=== PATIENT | male | born 1975 | race Hispanic/Latino ===

== ENCOUNTER 2023-08-22 06:53 | Day surgery (SDC) | payer BC ==
[2023-08-20 14:06] LABS: BASOPHILS # (AUTO) 0.05 K/uL (0.00-0.20); BASOPHILS % (AUTO) 0.7 % (0.0-5.0); EOSINOPHILS # (AUTO) 0.17 K/uL (0.00-0.70); EOSINOPHILS % (AUTO) 2.2 % (0.0-8.0); HEMATOCRIT 48.9 % (42-54); IMMATURE GRANULOCYTE ABSOLUTE 0.01 K/uL (0-1); LYMPHOCYTES # (AUTO) 2.5 K/uL (1.0-4.8); LYMPHOCYTES % (AUTO) 32.3 % (21.0-51.0); MEAN CORPUSCULAR HEMOGLOBIN 30.1 pg (27.0-33.0); MEAN CORPUSCULAR HGB CONC 32.3 g/dL (32.0-36.0); MEAN CORPUSCULAR VOLUME 93.1 fL (79-99); MONOCYTES # (AUTO) 0.8 K/uL (0.1-1.0); MONOCYTES % (AUTO) 9.9 % (3.0-13.0); NEUTROPHILS # (AUTO) 4.2 K/uL (1.8-7.7); NEUTROPHILS % (AUTO) 54.8 % (40.0-77.0); PLATELET COUNT (AUTO) 217 K/uL (130-400); RED BLOOD CELL COUNT(AUTO) 5.25 MIL/uL (4.50-6.20); RED CELL DISTRIBUTION WIDTH 13.5 % (11.0-15.5); WHITE BLOOD COUNT (AUTO) 7.7 K/uL (4.8-10.8)
[2023-08-20 14:14] LABS: CREATININE 0.7 mg/dL (0.5-1.5)
[2023-08-20 14:24] VITALS: BP 135/83; PULSE 71; RESP 15
[2023-08-22] VITALS (17 sets, daily range): BP systolic 107–127; BP diastolic 58–79; PULSE 72–97; RESP 12–16
[~2023-08-22] VITALS: Ht 175.3 cm; Wt 118.9 kg
[~2023-08-22 06:53] MED LIST: LOSA50TA64 PO; METF-444 PO
[2023-08-22] MEDS ORDERED: BUPIVACAINE/PF 0.5% 10ML VIAL ONE (07:08)
[2023-08-22] MEDS ORDERED: INSULIN HUMULIN R 100 UNIT/ML 3ML ONE (07:11)
[2023-08-22] MEDS ORDERED: 0.9%NACL 1000ML 1,000 ML IV ONE (07:32)
[2023-08-22] MEDS ORDERED: CEFAZOLIN SODIUM 1 GM VIAL ONE (07:32)
[2023-08-22] MEDS ORDERED: DEXAMETHASONE SOD PHOSPHATE 4 MG/ML 1ML VIAL ONE (07:52)
[2023-08-22] MEDS ORDERED: KETOROLAC 30MG VIAL (30MG/ML) ONE ×2 (07:52→11:45)
[2023-08-22] MEDS ORDERED: LIDOCAINE PF 100MG/5ML (2%) SYRINGE 5ML ONE (07:52)
[2023-08-22] MEDS ORDERED: ONDANSETRON 4MG INJ ONE ×2 (07:52→14:16)
[2023-08-22] MEDS ORDERED: PROPOFOL 10 MG/ML 20ML VIAL IV ONE (07:53)
[2023-08-22] MEDS ORDERED: FENTANYL CITRATE PF 50 MCG/1 ML 5ML AMP IV ONE (07:53)
[2023-08-22] MEDS ORDERED: ROCURONIUM 10MG/1ML SYR 10 MG/ML ML ONE ×2 (07:53→11:07)
[2023-08-22] MEDS ORDERED: MIDAZOLAM HCL 1 MG/ML 2ML VIAL ONE (07:53)
[2023-08-22] MEDS ORDERED: ROPIVACAINE 0.5% 5MG/ML 30ML IJ ONE ×2 (07:54→14:00)
[2023-08-22] MEDS ORDERED: LIDOCAINE HCL 1% MDV 50ML VIAL ONE (08:33)
[2023-08-22] MEDS ORDERED: BUPIVACAINE/PF 0.25% 30ML VIAL IJ ONE (08:34)
[2023-08-22] MEDS ORDERED: PHENYLEPHRINE HCL 10 MG/ML 1ML VIAL IV ONE (10:19)
[2023-08-22] MEDS ORDERED: GLYCOPYRROLATE 1 MG/5 ML SYRINGE ONE (11:42)
[2023-08-22] MEDS ORDERED: NEOSTIGMINE 5MG/5ML SYR IV ONE (11:42)
[2023-08-22] MEDS ORDERED: KETOROLAC 15MG/ML VIAL (15MG/ML) ONE (12:39)
== END 2023-08-22 14:45 | disposition home or self-care (01) ==
LOC: DAH 06:53
PROVIDERS: ATTEND Student in an Organized Health Care Education/Training Program
DX: K42.9 Umbilical hernia without obstruction or gangrene (principal); I10 Essential (primary) hypertension; E11.9 Type 2 diabetes mellitus without complications; Z79.01 Long term (current) use of anticoagulants; Z79.899 Other long term (current) drug therapy; Z86.16 Personal history of COVID-19; Z98.890 Other specified postprocedural states; Z79.84 Long term (current) use of oral hypoglycemic drugs
CPT/HCPCS: 49591; 64488; S2900; 36415; 80048; 82948; 85025; C1781; J0690; J1100; J1815; J1885; J2001; J2250; J2371; J2405; J2704; J2710; J2795; J3010; J3490; J7030; A4215; A4221; A4222; A4223; A4600; A4649; A4663; A6260; C1769; G0168; J0665